=== PATIENT | female | born 1980 | race Caucasian/White ===

== ENCOUNTER 2017-07-02 18:30 | Emergency (ER) | payer OTHER ==
[2017-07-02 18:46] VITALS: BP 147/87; PULSE 82; TEMP 98.3; BMI 28.3
--- NOTE | 2017-07-02 21:47 | PDOC ---
History of Present Illness - General History Source: Patient Exam Limitations: No Limitations - History of Present Illness Initial Comments: This is a 37 yo (about 4 weeks ) female with h/o ectopic this past February (treated with methotrexate x2), who presents with right lower abdominal pain for the past 3 days. It is radiating to the right lower back, fluctuating, up to 8/10 severity, and feels like a cramp. She has taken no medications for her symptoms. She was seen at the office of her OB doctor (Dr. Loya) on Thursday, at which time she had an ultrasound which did not show any sac, pole, or yolk sac within the uterus. She then had a follow-up hCG today, was told the level was high, and was instructed to go to the ED to rule out ectopic . She notes recent clear vaginal discharge and chills , but denies fever, vaginal bleeding, painful urination, fever, nausea, vomiting , diarrhea, constipation, or other recent symptoms. She denies h/o STDs and has no concern for STD tonight. <Hayley Gray - Last Filed: 07/02/17 23:27> <Gabriella Mohan - Last Filed: 07/03/17 01:26> - General Chief Complaint: Pain Stated Complaint: PCP SENT/EVALUATION Time Seen by Provider: 07/02/17 21:18 Past History - Psycho/Social/Smoking Cessation Hx Suicidal Ideation: No Smoking History: Never smoked Information on smoking cessation initiated: No Hx Alcohol Use: No Drug/Substance Use Hx: No Substance Use Type: None <Hayley Gray - Last Filed: 07/02/17 23:27> <Gabriella Mohan - Last Filed: 07/03/17 01:26> - Past Medical History Allergies/Adverse Reactions: Allergies Allergy/AdvReac Type Severity Reaction Status Date / Time No Known Allergies Allergy Verified 07/02/17 18:46 Home Medications: Ambulatory Orders Pantoprazole Sodium [Protonix -] 40 mg PO DAILY #14 tablet.ec 03/09/16 Nitrofurantoin Monohyd/M-Cryst [Macrobid -] 100 mg PO BID #14 capsule 07/03/17 Review of Systems - Review of Systems Constitutional: Yes: Chills. No: Fever, Unexplained wgt Loss HEENTM: No: Nose Congestion, Throat Pain Respiratory: No: Cough, Shortness of Breath Cardiac (ROS): No: Chest Pain, Palpitations ABD/GI: Yes: Abdominal cramping. No: Constipated, Diarrhea, Nausea, Vomiting : Yes: Other (clear vaginal discharge). No: Burning, Dysuria Musculoskeletal: No: Back Pain, Neck Pain Integumentary: No: Bruising, Rash Neurological: No: Headache, Numbness, Tingling, Weakness, Dizziness Endocrine: No: Unexplained Weight Gain, Unexplained Weight Loss <Hayley Gray - Last Filed: 07/02/17 23:27> *Physical Exam - Vital Signs Last Vital Signs Temp Pulse Resp BP Pulse Ox 98.3 F 82 18 147/87 100 07/02/17 18:44 07/02/17 18:44 07/02/17 18:44 07/02/17 18:44 07/02/17 18:44 07/02/17 22:30 Blood pressure re-checked suring examination to be 110/80. - Physical Exam General Appearance: Yes: Nourished, Appropriately Dressed, Other (well appearing and nontoxic appearing, conversive, pleasant). No: Apparent Distress HEENT: positive: EOMI, Normal Voice, Hearing Grossly Normal. negative: Scleral Icterus (R), Scleral Icterus (L), Nasal Congestion Neck: positive: Trachea midline, Supple. negative: Tender, Rigid Respiratory/Chest: positive: Lungs Clear, Normal Breath Sounds. negative: Respiratory Distress, Crackles, Rhonchi, Stridor, Wheezing Cardiovascular: positive: Regular Rhythm, Regular Rate. negative: Edema, Murmur Female Pelvic Exam: positive: normal external exam, cervical os closed, discharge (moderate thin white non-odorous discharge), adnexal tenderness ( right only). negative: CMT, lesions, vaginal bleeding Gastrointestinal/Abdominal: positive: Normal Bowel Sounds, Tender (mild RLQ), Soft. negative: Organomegaly, Pulsatile Mass, Guarding Musculoskeletal: positive: Normal Inspection. negative: Decreased Range of Motion, Vertebral Tenderness Extremity: positive: Normal Capillary Refill, Normal Inspection, Normal Range of Motion. negative: Tender, Cyanosis Integumentary: positive: Normal Color, Dry, Warm. negative: Erythema, Rash, Bruising Neurologic: positive: transitional care manager II-XII NML intact (grossly), Fully Oriented, Alert, Normal Mood/Affect, Normal Response, Motor Strength 5/5 <Hayley Gray - Last Filed: 07/02/17 23:27> - Vital Signs Last Vital Signs Temp Pulse Resp BP Pulse Ox 98.3 F 82 18 147/87 100 07/02/17 18:44 07/02/17 18:44 07/02/17 18:44 07/02/17 18:44 07/02/17 18:44 <Gabriella Mohan - Last Filed: 07/03/17 01:26> ED Treatment Course - LABORATORY CBC & Chemistry Diagram: 07/02/17 22:12 07/02/17 22:12 <Hayley Gray - Last Filed: 07/02/17 23:27> - LABORATORY CBC & Chemistry Diagram: 07/02/17 22:12 07/02/17 22:12 - ADDITIONAL ORDERS Additional order review: Laboratory Results 07/02/17 07/02/17 07/02/17 22:12 22:12 22:12 Sodium 138 Potassium 3.6 Chloride 104 Carbon Dioxide 28 Anion Gap 6 L BUN 9 Creatinine 0.6 D Creat Clearance w eGFR > 60 Random Glucose 99 Calcium 8.9 Total Bilirubin 0.4 D AST 16 ALT 35 D Alkaline Phosphatase 82 Total Protein 7.3 Albumin 3.9 Beta HCG, Quant 2043.7 Urine Color Urine Appearance Urine pH Urine Protein Urine Glucose (UA) Urine Ketones Urine Blood Urine Nitrite Urine Bilirubin Urine Urobilinogen Ur Leukocyte Esterase Urine RBC Urine WBC Ur Epithelial Cells Hyaline Casts Urine Mucus Urine HCG, Qual Blood Type O POSITIVE Antibody Screen Negative 07/02/17 07/02/17 22:04 21:55 Sodium Potassium Chloride Carbon Dioxide Anion Gap BUN Creatinine Creat Clearance w eGFR Random Glucose Calcium Total Bilirubin AST ALT Alkaline Phosphatase Total Protein Albumin Beta HCG, Quant Urine Color Yellow Urine Appearance Slcloudy Urine pH 7.0 Urine Protein Negative Urine Glucose (UA) Negative Urine Ketones Negative Urine Blood Negative Urine Nitrite Negative Urine Bilirubin Negative Urine Urobilinogen 4.0 e.u/dl H Ur Leukocyte Esterase 3+ H Urine RBC 1 Urine WBC 10 Ur Epithelial Cells Few Hyaline Casts 4 Urine Mucus Rare Urine HCG, Qual Positive Blood Type Antibody Screen 07/02/17 22:12 RBC 4.53 MCV 86.7 MCHC 33.3 RDW 12.2 MPV 8.0 Neutrophils % 70.0 Lymphocytes % 22.4 D Monocytes % 6.0 Eosinophils % 1.3 Basophils % 0.3 - RADIOLOGY Radiology Studies Ordered: Category Date Time Status PELVIS(OTHER) US [US] Stat Ultrasound 07/03/17 00:25 Taken TRANSVAGINAL ULTRASOUND US [US] Stat Ultrasound 07/02/17 21:40 Completed <Gabriella Mohan - Last Filed: 07/03/17 01:26> Medical Decision Making - Medical Decision Making This is a 37 yo (4 wk ) female with h/o prior ectopic who p/w RLQ pain. US in OB's office on Thursday was not able to visualize IUP. Beta-hCG today in OB office was high. Pt was instructed to come to the ED to r/o ectopic . Exam notable for RLQ ttp. Pelvic with moderate thin white discharge, os closed, right adnexal tenderness, no CMT. DDX includes ectopic , appendicitis, round ligament pain, UTI. Ordered are CBC, CMP, lipase, quant beta-hCG, UA/cx, US transvaginal. 07/02/17 23:27 UA with 3+ leukocyte esterase. CBC unremarkable. Quantitative beta-hCG is 2043.7. Pt is sent for transvaginal US. 07/02/17 23:33 <Hayley Gray - Last Filed: 07/02/17 23:27> *DC/Admit/Observation/Transfer <Hayley Gray - Last Filed: 07/02/17 23:27> <Gabriella Mohan - Last Filed: 07/03/17 01:26> Diagnosis at time of Disposition: Abdominal pain affecting - Prescriptions Prescriptions: Nitrofurantoin Monohyd/M-Cryst [Macrobid -] 100 mg PO BID #14 capsule - Referrals Referrals: Hilario Loya [Primary Care Provider] - - Patient Instructions Printed Discharge Instructions: DI for Acute Abdomen Additional Instructions: Your ultrasound was inconclusive as the appendix was not visible. Please return at 6:30am for your MRI which is needed to rule out appendicitis. If your abdominal pain worsens, come back sooner.
--- NOTE | 2017-07-02 21:51 | PDOC ---
Attending Attestation - HPI HPI: The patient is a 37 yo F with a past medical history significant for Hx of ectopic who presents from OBs office complaining of 2-3 days of RLQ pain and positive HCG with no intrauterine seen on US at her OBs office. The patient states the pain radiates to her R lower back. She describes the pain as a cramping sensation. The patient states she went to her OBs office on Thursday and had her US. Today, the patient tested her HCG in office today and found it to be elevated. Her OB sent her to the ED for possible ectopic . 07/09. Radiates to RL back. Cramping. She states her LMP was 05/26. She notes shes been having clear vaginal discharge and subjective chills. Denies fevers, nausea, vomiting, diarrhea. Denies vaginal bleeding. Denies hematuria, frequency, urgency and dysuria. She states her last ectopic felt different in that it was nonstop bleeding and more painful. She also experienced nausea and vomiting last time. Last BM was this morning. PCP: Dr. Mas - Physicial Exam PE: GENERAL: Awake, alert, and fully oriented, in no acute distress HEAD: No signs of trauma EYES: PERRLA, EOMI, sclera anicteric, conjunctiva clear ENT: Auricles normal inspection, hearing grossly normal, nares patent, oropharynx clear without exudates. Moist mucosa NECK: Normal ROM, supple, no lymphadenopathy, JVD, or masses LUNGS: Breath sounds equal, clear to auscultation bilaterally. No wheezes, and no crackles HEART: Regular rate and rhythm, normal S1 and S2, no murmurs, rubs or gallops ABDOMEN: Soft, RLQ tenderness to palpation, normoactive bowel sounds. No guarding, no rebound. No masses EXTREMITIES: Normal range of motion, no edema. No clubbing or cyanosis. No cords, erythema, or tenderness NEUROLOGICAL: Cranial nerves II through XII grossly intact. Normal speech, normal gait SKIN: Warm, Dry, normal turgor, no rashes or lesions noted. - Medical Decision Making Pelvic US: FINDINGS: The appendix is not visualized. However, there is excess bowel gas limiting the scan. Therefore, nonvisualization of the appendix does not exclude appendicitis and if appendicitis is suspected, further evaluation is recommended. Documentation prepared by Margie Lim, acting as medical coding auditor for Gabriella Mohan MD, /DO. <Margie Lim - Last Filed: 07/03/17 00:52> - Resident Resident Name: Hayley Gray - Medical Decision Making 07/02/17 23:00 37yo F currently 4 weeks by dates, hx ectopic p/w 2 days of RLQ pain and sent in to ED by her OB 2/2 "elevated HCG." Pt also reports that an US on Thursday did not show an intrauterine . Here, her exam is remarkable for significant RLQ ttp but no rebound or guarding and mild R adnexal ttp on pelvic exam. Concern for ectopic vs appendicitis. TVUS thus far negative for ectopic , and shows no R ovarian pathology. In addition, the US shows an IUP, On reexamination, pt remains tender in the RLQ. Spoke with radiology who recommends a pelvic US to see if the appendix can be visualized. Remainder of plan: -labs including CBC, T&S, and HCG quant -UA -reassess 07/02/17 23:05 Initial BP 140's systolic. On repeat BP 108/72, and when repeated 30 mins later was 104/68. UA with no protein. UA with 3+ LE, pt is asymptomatic. Will give pt nitrofurantoin in case of asymptomatic bacturia. 07/03/17 01:00 Pelvic US does not visualize the appendix. Since an MRI will be needed to r/o appendicitis, we offered to patient admission for monitoring as well as consultation of the CLIENT SUPPORT MANAGER team in addition to an MRI in the morning. Pt does not want to stay in the hospital and prefers to come back in the morning for MRI. I discussed the possibility of her condition getting worse, especially if there is an appendicitis and that we could monitor her in the ED but she declines to stay. Vitals are stable, she is not in any distress. She agrees to return in the morning for MRI or at any point tonight if she changes her mind or she has any symptoms of worsening pain, distended abdomen, bleeding, CP, or any other concerning symptoms. -DC 07/03/17 03:48 <Gabriella Mohan - Last Filed: 07/03/17 03:48>
[2017-07-02 22:11] LABS: URINE APPEARANCE SLCLOUDY; URINE BILIRUBIN NEGATIVE (NEGATIVE); URINE BLOOD NEGATIVE (NEGATIVE); URINE COLOR YELLOW; URINE GLUCOSE (UA) NEGATIVE (NEGATIVE); URINE KETONE NEGATIVE (NEGATIVE); URINE NITRITE NEGATIVE (NEGATIVE); URINE PROTEIN NEGATIVE (NEGATIVE); URINE UROBILINOGEN 4.0 E.U/dl mg/dL (0.2-1.0)
[2017-07-02 22:13] LABS: URINE LEUK ESTERASE 3+ (NEGATIVE)
[2017-07-02 22:15] LABS: URINE HYALINE CAST 4 /lpf; URINE MUCUS RARE; URINE RBC 1 /hpf (0-3); URINE WBC 10 /hpf (3-5)
[2017-07-02 22:19] LABS: BASOPHIL 0.3 % (0-2.0); EOSINOPHIL 1.3 % (0-4.5); MCH 28.9 pg (25.7-33.7); MCHC 33.3 g/dl (32.0-36.0); MEAN CELL VOLUME 86.7 fl (80-96); PLATELET COUNT 245 K/MM3 (134-434); RDW 12.2 % (11.6-15.6); WHITE BLOOD COUNT 9.5 K/mm3 (4.0-10.0)
[2017-07-02 22:51] LABS: ALBUMIN 3.9 g/dl (3.4-5.0); ANION GAP 6 (8-16); BILIRUBIN,TOTAL 0.4 mg/dL (0.2-1.0); CALCIUM 8.9 mg/dL (8.5-10.1); CO2 28 mmol/L (21-32); CREATININE 0.6 mg/dL (0.55-1.02); GLUCOSE,RANDOM 99 mg/dL (74-106); SGOT/AST 16 U/L (15-37); SGPT/ALT 35 U/L (12-78); TOT PROT 7.3 g/dl (6.4-8.2)
[2017-07-02 22:52] LABS: ALK PHOS 82 U/L (45-117)
[2017-07-03] MEDS ORDERED: NITROFURANTOIN MACROCRYSTAL 50 MG CAPSULE (FP) PO SCH (00:30)
--- NOTE | 2017-07-03 00:36 | PDOC ---
*Physical Exam - Vital Signs Pt's course was signed out to me by Dr. Vanegas. Pt is a 37F , who is 4 weeks , presenting with RLQ abdominal pain. Pt has no fever, no leukocytosis, no vaginal bleeding. transvaginal US showed intrauterine . Pelvic exam demonstrated adnexal tenderness. US vs. MRI to r/o appendicitis. Pt's UA consistent with UTI, pt is asymptomatic, treated with abx. Last Vital Signs Temp Pulse Resp BP Pulse Ox 98.3 F 82 18 147/87 100 07/02/17 18:44 07/02/17 18:44 07/02/17 18:44 07/02/17 18:44 07/02/17 18:44 07/03/17 00:26 ED Treatment Course - LABORATORY CBC & Chemistry Diagram: 07/02/17 22:12 07/02/17 22:12 - ADDITIONAL ORDERS Additional order review: Laboratory Results 07/02/17 07/02/17 07/02/17 22:12 22:12 22:12 Sodium 138 Potassium 3.6 Chloride 104 Carbon Dioxide 28 Anion Gap 6 L BUN 9 Creatinine 0.6 D Creat Clearance w eGFR > 60 Random Glucose 99 Calcium 8.9 Total Bilirubin 0.4 D AST 16 ALT 35 D Alkaline Phosphatase 82 Total Protein 7.3 Albumin 3.9 Beta HCG, Quant 2043.7 Urine Color Urine Appearance Urine pH Urine Protein Urine Glucose (UA) Urine Ketones Urine Blood Urine Nitrite Urine Bilirubin Urine Urobilinogen Ur Leukocyte Esterase Urine RBC Urine WBC Ur Epithelial Cells Hyaline Casts Urine Mucus Urine HCG, Qual Blood Type O POSITIVE Antibody Screen Negative 07/02/17 07/02/17 22:04 21:55 Sodium Potassium Chloride Carbon Dioxide Anion Gap BUN Creatinine Creat Clearance w eGFR Random Glucose Calcium Total Bilirubin AST ALT Alkaline Phosphatase Total Protein Albumin Beta HCG, Quant Urine Color Yellow Urine Appearance Slcloudy Urine pH 7.0 Urine Protein Negative Urine Glucose (UA) Negative Urine Ketones Negative Urine Blood Negative Urine Nitrite Negative Urine Bilirubin Negative Urine Urobilinogen 4.0 e.u/dl H Ur Leukocyte Esterase 3+ H Urine RBC 1 Urine WBC 10 Ur Epithelial Cells Few Hyaline Casts 4 Urine Mucus Rare Urine HCG, Qual Positive Blood Type Antibody Screen 07/02/17 22:12 RBC 4.53 MCV 86.7 MCHC 33.3 RDW 12.2 MPV 8.0 Neutrophils % 70.0 Lymphocytes % 22.4 D Monocytes % 6.0 Eosinophils % 1.3 Basophils % 0.3 *DC/Admit/Observation/Transfer Diagnosis at time of Disposition: Abdominal pain affecting - Discharge Dispostion Disposition: HOME Admit: No - Prescriptions Prescriptions: Nitrofurantoin Monohyd/M-Cryst [Macrobid -] 100 mg PO BID #14 capsule - Patient Instructions Printed Discharge Instructions: DI for Acute Abdomen Additional Instructions: Your ultrasound was inconclusive as the appendix was not visible. Please return at 6:30am for your MRI which is needed to rule out appendicitis. If your abdominal pain worsens, come back sooner. - Attestations Physician Attestion: 07/03/17 01:09 I, Dr. Ruben Villeda, attest that this document has been prepared under my direction and personally reviewed by me in its entirety. I further attest, that it accurately reflects all work, treatment, procedures and medical decision -making performed by me.
[2017-07-03] MEDS ORDERED: NITROFURANTOIN MACROCRYSTAL 50 MG CAPSULE (FP) ONE (01:23)
== END 2017-07-03 01:30 | disposition home or self-care (01) ==
LOC: JER 18:30
DX: O26.891 Other specified pregnancy related conditions, first trimester (principal); Z3A.01 Less than 8 weeks gestation of pregnancy; R10.30 Lower abdominal pain, unspecified
CPT/HCPCS: 36415; 76830-TC; 76856-TC; 80053; 81003; 81015; 84702; 84703; 85025; 86850; 86900; 86901; 87086; 99282-25

== ENCOUNTER 2017-07-03 07:48 | Emergency (ER) | payer OTHER ==
[2017-07-03 07:57] VITALS: TEMP 98.1; BMI 28.3
--- NOTE | 2017-07-03 08:16 | PDOC ---
History of Present Illness - General Chief Complaint: Pain, Acute Stated Complaint: REVISIT Time Seen by Provider: 07/03/17 08:09 - History of Present Illness Initial Comments: 07/03/17 08:09 Ms. Porter is a 37 yo female with a significant past medical history of ectopic who presented to the emergency department from OB's office yesterday with 2-3 days of RLQ pain. She was referred to ER by OB after positive HCG w/out intrauterine seen on US at OB's office. She says the pain radiates to her lower back (R) and that it is crampy. She describes her pain as 9/10. LMP 05/26, she notes she has been having clear vaginal discharge w/ subjective chills. She had a full workup last night which was able to confirm an intrauterine sac (no pole noted) with transvaginal US. Pelvic US was not able to r/o appendicitis and she was recommended for admission with MRI. Elected to go home and represents this AM for same. The patient denies chest pain, shortness of breath, headache and dizziness. Denies fever, nausea, vomit, diarrhea and constipation. Denies dysuria, frequency, urgency and hematuria. Allergies: NKDA Past surgical history: None Social history: Social EtOH PMD - Dr. Llanes [facility] - Dr. Morgan 07/03/17 08:46 Past History - Past Medical History Allergies/Adverse Reactions: Allergies Allergy/AdvReac Type Severity Reaction Status Date / Time No Known Allergies Allergy Verified 07/03/17 07:55 Home Medications: Ambulatory Orders Nitrofurantoin Monohyd/M-Cryst [Macrobid -] 100 mg PO BID #14 capsule 07/03/17 - Immunization History Immunization Up to Date: Yes - Psycho/Social/Smoking Cessation Hx Suicidal Ideation: No Smoking History: Never smoked Hx Alcohol Use: No Drug/Substance Use Hx: No Substance Use Type: None Review of Systems - Review of Systems Comments:: 07/03/17 08:09 GENERAL/CONSTITUTIONAL: +Subjective chills. No fever. No weakness. HEAD, EYES, EARS, NOSE AND THROAT: No change in vision. No ear pain or discharge. No sore throat. CARDIOVASCULAR: No chest pain or shortness of breath RESPIRATORY: No cough, wheezing, or hemoptysis. GASTROINTESTINAL: +RLQ pain radiating to her back. No nausea, vomiting, diarrhea or constipation. GENITOURINARY: No dysuria, frequency, or change in urination. MUSCULOSKELETAL: No joint or muscle swelling or pain. No neck or back pain. SKIN: No rash NEUROLOGIC: No headache, vertigo, loss of consciousness, or change in strength/ sensation. ENDOCRINE: No increased thirst. No abnormal weight change HEMATOLOGIC/LYMPHATIC: No anemia, easy bleeding, or history of blood clots. ALLERGIC/IMMUNOLOGIC: No hives or skin allergy. *Physical Exam - Vital Signs Last Vital Signs Temp Pulse Resp BP Pulse Ox 98.1 F 73 18 131/78 100 07/03/17 07:55 07/03/17 07:55 07/03/17 07:55 07/03/17 07:55 07/03/17 07:55 - Physical Exam Comments: 07/03/17 08:09 GENERAL: Awake, alert, and fully oriented, in no acute distress HEAD: No signs of trauma, normocephalic, atraumatic EYES: PERRLA, EOMI, sclera anicteric, conjunctiva clear ENT: Auricles normal inspection, hearing grossly normal, nares patent, oropharynx clear without exudates. Moist mucosa NECK: Normal ROM, supple, no lymphadenopathy, JVD, or masses LUNGS: No distress, speaks full sentences, clear to auscultation bilaterally HEART: Regular rate and rhythm, normal S1 and S2, no murmurs, rubs or gallops, peripheral pulses normal and equal bilaterally. ABDOMEN: +Achey and Tender in RLQ. No rebound. Soft, normoactive bowel sounds. No guarding, no rebound. No masses EXTREMITIES: Normal inspection, Normal range of motion, no edema. No clubbing or cyanosis. NEUROLOGICAL: Cranial nerves II through XII grossly intact. Normal speech, normal gait, no focal sensorimotor deficits SKIN: Warm, Dry, normal turgor, no rashes or lesions noted. 07/03/17 13:23 ED Treatment Course - LABORATORY CBC & Chemistry Diagram: 07/03/17 09:09 07/03/17 09:09 Medical Decision Making - Medical Decision Making 07/03/17 09:29 Ms. Porter presents for F/U after leaving ED early this AM (0100) with suspected appendicitis. MRI ordered to confirm. 07/03/17 13:22 MRI negative for appendicitis, labs unconcerning. Instructed patient to f/u outpatient with [facility] and continue ABX. *DC/Admit/Observation/Transfer Diagnosis at time of Disposition: Epigastric abdominal pain - Discharge Dispostion Disposition: HOME Condition at time of disposition: Stable - Patient Instructions Additional Instructions: Please return immediately if any increase in pain, fever, or other concerning symptoms. - Attestations Physician Attestion: 07/03/17 13:23 I, Dr. Saeid Cordon, attest that this document has been prepared under my direction and personally reviewed by me in its entirety. I further attest, that it accurately reflects all work, treatment, procedures and medical decision -making performed by me.
--- NOTE | 2017-07-03 09:33 | PDOC ---
Attending Attestation - Resident Resident Name: Saeid Cordon - ED Attending Attestation I have performed the following: I have examined & evaluated the patient, The case was reviewed & discussed with the resident, I agree w/resident's findings & plan, Exceptions are as noted - HPI HPI: 07/03/17 09:25 37-year-old female approximate 5 weeks with no past medical history returns back for right lower quadrant pain. Patient was found to have a urinary tract infection and a transvaginal ultrasound demonstrated at 4 weeks and 6 days but no pole. Patient was given antibiotics and recommended for MRI. However, the patient did not want to stay and left and agree to return in the morning for an MRI. Denies fevers, nausea, vomiting, diarrhea. - Physicial Exam PE: 07/03/17 09:33 GENERAL: Awake, alert, and fully oriented, in no acute distress. HEAD: No signs of trauma EYES: PERRLA, EOMI, sclera anicteric, conjunctiva clear ENT: Auricles normal inspection, hearing grossly normal, nares patent, oropharynx clear without exudates. NECK: Normal ROM, supple, no lymphadenopathy, JVD, or masses LUNGS: Breath sounds equal, clear to auscultation bilaterally. No wheezes, and no crackles HEART: Regular rate and rhythm, normal S1 and S2, no murmurs, rubs or gallops ABDOMEN: TTP RLQ. Soft, normoactive bowel sounds. No guarding, no rebound. No masses EXTREMITIES: Normal range of motion, no edema. No clubbing or cyanosis. No cords, erythema, or tenderness NEUROLOGICAL: Cranial nerves II through XII grossly intact. Normal speech, normal gait SKIN: Warm, Dry, normal turgor, no rashes or lesions noted. - Medical Decision Making 07/03/17 09:33 Vital Signs Temp Pulse Resp BP Pulse Ox 98.1 F 73 18 131/78 100 07/03/17 07:55 07/03/17 07:55 07/03/17 07:55 07/03/17 07:55 07/03/17 07:55 Repeat beta. I agree reply with MRI. Abdomen pelvis to rule out appendicitis. 07/03/17 13:04 CBC, BMP 07/03/17 09:09 07/03/17 09:09 CMP Sodium 138 mmol/L (136-145) 07/03/17 09:09 Potassium 3.4 mmol/L (3.5-5.1) L 07/03/17 09:09 Chloride 105 mmol/L (98-107) 07/03/17 09:09 Carbon Dioxide 25 mmol/L (21-32) 07/03/17 09:09 Anion Gap 8 (8-16) 07/03/17 09:09 BUN 7 mg/dL (7-18) D 07/03/17 09:09 Creatinine 0.5 mg/dL (0.55-1.02) L 07/03/17 09:09 Random Glucose 89 mg/dL (74-106) 07/03/17 09:09 Calcium 8.8 mg/dL (8.5-10.1) 07/03/17 09:09 MRI reviewed. No appendicitis. Likely cystitis.
[2017-07-03 10:05] LABS: ANION GAP 8 (8-16); CALCIUM 8.8 mg/dL (8.5-10.1); CO2 25 mmol/L (21-32); CREATININE 0.5 mg/dL (0.55-1.02); GLUCOSE,RANDOM 89 mg/dL (74-106)
[2017-07-03 10:06] LABS: BASOPHIL 0.3 % (0-2.0); MCH 29.2 pg (25.7-33.7); MCHC 33.9 g/dl (32.0-36.0); MEAN CELL VOLUME 86.2 fl (80-96); PLATELET COUNT 228 K/MM3 (134-434); WHITE BLOOD COUNT 8.1 K/mm3 (4.0-10.0)
[2017-07-03 14:06] VITALS: BP 107/66; PULSE 93
== END 2017-07-03 14:06 | disposition home or self-care (01) ==
LOC: JER 07:48
DX: R10.13 Epigastric pain (principal)
CPT/HCPCS: 36415; 72195-TC; 74181-TC; 80048; 84702; 84703; 85025; 99283-25

== ENCOUNTER 2017-11-14 14:51 | Emergency (ER) | payer OTHER ==
[2017-11-14 15:08] VITALS: BMI 29.2
[2017-11-14] MEDS ORDERED: ACETAMINOPHEN 1000 MG/100 ML VIAL (NON FORMULARY) IVPB ONE (16:31)
[2017-11-14] MEDS ORDERED: SODIUM CHLORIDE 1,000 ML IV STA (16:31)
[2017-11-14] MEDS ORDERED: ONDANSETRON 4 MG/2 ML VIAL IVPB ONE (16:32)
[2017-11-14] MEDS ORDERED: ACETAMINOPHEN INJECTION 100 ML IVPB ONE (16:40)
[2017-11-14] MEDS ORDERED: ONDANSETRON 4 MG/2 ML VIAL ONE (16:41)
--- NOTE | 2017-11-14 16:44 | PDOC ---
History of Present Illness - General Chief Complaint: Cold Symptoms Stated Complaint: TROUBLE BREATHING/24 WKS PREG Time Seen by Provider: 11/14/17 16:22 - History of Present Illness Initial Comments: 11/14/17 16:39 37 F @ 24 weeks presenting with cough and sore throat x 2 days. Pt denies F/C. Pt denies any significant chest pain or SOB other than when she has a coughing fit. At rest she currently denies CP/SOB. Denies pleuritic or exertional chest pain. Pt denies any asymmetric leg swelling. Endorses occasional nausea and vomiting, no diarrhea or abdominal pain. No dysuria. No vaginal bleeding or discharge. Pt was seen at urgent care earlier today and had a negative flu swab and strep test. She was referred to ER due to tachycardia. Pt states that her OB, Dr. Longoria, instructed her to come to ER. I spoke with Dr. Longoria, who expressed his concern over pt's tachycardia in urgent care. He recommends non-stress testing after ED work up. Past History - Past Medical History Allergies/Adverse Reactions: Allergies Allergy/AdvReac Type Severity Reaction Status Date / Time No Known Allergies Allergy Verified 11/14/17 15:08 Home Medications: Ambulatory Orders Nitrofurantoin Monohyd/M-Cryst [Macrobid -] 100 mg PO BID #14 capsule 07/03/17 COPD: No - Immunization History Immunization Up to Date: Yes - Suicide/Smoking/Psychosocial Hx Smoking History: Never smoked Hx Alcohol Use: No Drug/Substance Use Hx: No Substance Use Type: None Review of Systems - Review of Systems Comments:: 11/14/17 16:44 "GENERAL/CONSTITUTIONAL: No fever or chills. No weakness. HEAD, EYES, EARS, NOSE AND THROAT: +sore throat. No change in vision. No ear pain or discharge. CARDIOVASCULAR: No chest pain or shortness of breath. RESPIRATORY: + cough, no wheezing, or hemoptysis. GASTROINTESTINAL: No nausea, vomiting, diarrhea or constipation. GENITOURINARY: No dysuria, frequency, or change in urination. MUSCULOSKELETAL: No joint or muscle swelling or pain. No neck or back pain. SKIN: No rash NEUROLOGIC: No headache, vertigo, loss of consciousness, or change in strength/ sensation. ENDOCRINE: No increased thirst. No abnormal weight change. HEMATOLOGIC/LYMPHATIC: No anemia, easy bleeding, or history of blood clots. ALLERGIC/IMMUNOLOGIC: No hives or skin allergy. " *Physical Exam - Vital Signs Last Vital Signs Temp Pulse Resp BP Pulse Ox 98.9 F 124 H 20 117/86 98 11/14/17 15:05 11/14/17 15:05 11/14/17 15:05 11/14/17 15:05 11/14/17 15:05 - Physical Exam Comments: 11/14/17 16:44 "GENERAL: Awake, alert, and fully oriented, in no acute distress HEAD: No signs of trauma EYES: PERRLA, EOMI, sclera anicteric, conjunctiva clear ENT: Auricles normal inspection, hearing grossly normal, nares patent, oropharynx clear without exudates. Moist mucosa NECK: Nontender, no stepoffs, Normal ROM, supple, no lymphadenopathy, JVD, or masses LUNGS: Breath sounds equal, clear to auscultation bilaterally. No wheezes, and no crackles HEART: Regular rate and rhythm, normal S1 and S2, no murmurs, rubs or gallops ABDOMEN: Soft, gravid, nontender, normoactive bowel sounds. No guarding, no rebound. No masses EXTREMITIES: Normal range of motion, no edema. No clubbing or cyanosis. No cords, erythema, or tenderness NEUROLOGICAL: Cranial nerves II through XII intact. 5/5 strength and sensation in all extremities, Normal speech, normal gait SKIN: Warm, Dry, normal turgor, no rashes or lesions noted. " Heart Score/ECG Review - ECG Impressions Comment:: 11/14/17 17:16 NSR, no EARLINE/STDs, HR 100, intervals wnl, axis wnl ED Treatment Course - LABORATORY CBC & Chemistry Diagram: 11/14/17 17:05 11/14/17 17:05 Medical Decision Making - Medical Decision Making 11/14/17 16:45 37 F @ 24 weeks presenting with URI-like symptoms, sent from urgent care to ER for tachycardia. Pt with HR 120 in ER. Pt with no clinical signs or symptoms of DVT and no pleuritic CP or SOB. Pt likely volume depleted 2/2 viral illness and vomiting. - IVF, zofran, tylenol - Reassess, repeat vitals 11/14/17 18:12 CBC,CMP WBC 10.4 K/mm3 (4.0-10.0) H 11/14/17 17:05 RBC 4.28 M/mm3 (3.60-5.2) 11/14/17 17:05 Hgb 12.5 GM/dL (10.7-15.3) 11/14/17 17:05 Hct 37.1 % (32.4-45.2) 11/14/17 17:05 MCV 86.7 fl (80-96) 11/14/17 17:05 MCH 29.3 pg (25.7-33.7) 11/14/17 17:05 MCHC 33.8 g/dl (32.0-36.0) 11/14/17 17:05 RDW 13.0 % (11.6-15.6) 11/14/17 17:05 Plt Count 181 K/MM3 (134-434) D 11/14/17 17:05 MPV 9.2 fl (7.5-11.1) D 11/14/17 17:05 Neutrophils % 82.7 % (42.8-82.8) 11/14/17 17:05 Lymphocytes % 8.6 % (8-40) D 11/14/17 17:05 Monocytes % 5.9 % (3.8-10.2) 11/14/17 17:05 Eosinophils % 2.4 % (0-4.5) D 11/14/17 17:05 Basophils % 0.4 % (0-2.0) 11/14/17 17:05 Sodium 137 mmol/L (136-145) 11/14/17 17:05 Potassium 3.4 mmol/L (3.5-5.1) L 11/14/17 17:05 Chloride 103 mmol/L (98-107) 11/14/17 17:05 Carbon Dioxide 24 mmol/L (21-32) 11/14/17 17:05 Anion Gap 10 (8-16) 11/14/17 17:05 BUN 5 mg/dL (7-18) L D 11/14/17 17:05 Creatinine 0.5 mg/dL (0.55-1.02) L 11/14/17 17:05 Creat Clearance w eGFR > 60 (>60) 11/14/17 17:05 Random Glucose 74 mg/dL (74-106) 11/14/17 17:05 Calcium 8.4 mg/dL (8.5-10.1) L 11/14/17 17:05 Total Bilirubin 0.3 mg/dL (0.2-1.0) D 11/14/17 17:05 AST 24 U/L (15-37) D 17 17:05 ALT 39 U/L (12-78) 11/14/17 17:05 Alkaline Phosphatase 84 U/L (45-117) 11/14/17 17:05 Creatine Kinase 48 IU/L (26-192) 11/14/17 17:05 Troponin I < 0.02 ng/ml (0.00-0.05) 11/14/17 17:05 Total Protein 6.7 g/dl (6.4-8.2) 11/14/17 17:05 Albumin 3.1 g/dl (3.4-5.0) L D 11/14/17 17:05 Lipase 221 U/L (73-393) 11/14/17 17:05 Pt reassessed - now has HR <100. Pt able to tolerate PO. Denies any chest pain or shortness of breath. Pt is well appearing with normal vitals. Clinically stable for DC at this time. Will send pt to L&D for heart monitoring. *DC/Admit/Observation/Transfer Diagnosis at time of Disposition: Viral syndrome - Discharge Dispostion Disposition: HOME - Referrals Referrals: Gaston Lujan MD [Primary Care Provider] - - Patient Instructions Printed Discharge Instructions: DI for Viral Upper Respiratory Infection -- Adult Additional Instructions: Please go directly to the labor and delivery floor for an evaluation of your baby. You likely have a viral illness. However, if you experience worsening symptoms, symptoms persisting more than 4 days, chest pain, difficulty breathing, or any other concerning symptoms, return to the ER immediately. Otherwise follow up with Dr. Longoria this week for a re-evaluation. - Post Discharge Activity - Attestations Physician Attestion: 11/14/17 18:14 I, Dr. Zak Narvaez MD, attest that this document has been prepared under my direction and personally reviewed by me in its entirety. I further attest, that it accurately reflects all work, treatment, procedures and medical decision -making performed by me.
[2017-11-14 16:58] LABS: URINE APPEARANCE SLCLOUDY; URINE BILIRUBIN NEGATIVE (NEGATIVE); URINE BLOOD NEGATIVE (NEGATIVE); URINE COLOR YELLOW; URINE GLUCOSE (UA) 1+ (NEGATIVE); URINE KETONE 2+ (NEGATIVE); URINE LEUK ESTERASE TRACE (NEGATIVE); URINE NITRITE NEGATIVE (NEGATIVE); URINE PROTEIN NEGATIVE (NEGATIVE); URINE UROBILINOGEN NEGATIVE mg/dL (0.2-1.0)
[2017-11-14 17:06] LABS: URINE BACTERIA RARE /hpf (NONE SEEN); URINE MUCUS RARE; URINE RBC <1 /hpf (0-3); URINE WBC 1 /hpf (3-5)
[2017-11-14 17:14] LABS: BASOPHIL 0.4 % (0-2.0); EOSINOPHIL 2.4 % (0-4.5); MCH 29.3 pg (25.7-33.7); MCHC 33.8 g/dl (32.0-36.0); MEAN CELL VOLUME 86.7 fl (80-96); MEAN PLT VOLUME 9.2 fl (7.5-11.1); NEUTROPHILS 82.7 % (42.8-82.8); PLATELET COUNT 181 K/MM3 (134-434); WHITE BLOOD COUNT 10.4 K/mm3 (4.0-10.0)
[2017-11-14 17:39] LABS: ALBUMIN 3.1 g/dl (3.4-5.0); ANION GAP 10 (8-16); BILIRUBIN,TOTAL 0.3 mg/dL (0.2-1.0); CALCIUM 8.4 mg/dL (8.5-10.1); CO2 24 mmol/L (21-32); CREATININE 0.5 mg/dL (0.55-1.02); GLUCOSE,RANDOM 74 mg/dL (74-106); SGOT/AST 24 U/L (15-37); SGPT/ALT 39 U/L (12-78); TOT PROT 6.7 g/dl (6.4-8.2)
[2017-11-14 17:42] LABS: ALK PHOS 84 U/L (45-117); CPK 48 IU/L (26-192); TROPONIN I < 0.02 ng/ml (0.00-0.05)
[2017-11-14 19:56] VITALS: BP 106/66; PULSE 103; TEMP 98.4
[2017-11-14 23:44] LABS: URINE LEUK ESTERASE Negative (NEGATIVE)
--- NOTE | 2017-11-17 01:40 | EKG ---
Test Reason : Blood Pressure : / mmHG Vent. Rate : 100 BPM Atrial Rate : 100 BPM P-R Int : 128 ms QRS Dur : 078 ms QT Int : 360 ms P-R-T Axes : 026 070 011 degrees QTc Int : 464 ms NORMAL SINUS RHYTHM NORMAL ECG NO PREVIOUS ECGS AVAILABLE Confirmed by ANIYA KHAN MD ([id number]) on 11/17/2017 1:40:42 AM Referred By: Confirmed By:ANIYA KHAN MD
== END 2017-11-14 20:25 | disposition home or self-care (01) ==
LOC: JER 14:51
PROC: 3E0337Z Introduction of Electrolytic and Water Balance Substance into Peripheral Vein, Percutaneous Approach (ICD-10-PCS; principal; 2017-11-14)
PROC: 3E033NZ Introduction of Analgesics, Hypnotics, Sedatives into Peripheral Vein, Percutaneous Approach (ICD-10-PCS; 2017-11-14)
PROC: 3E033GC Introduction of Other Therapeutic Substance into Peripheral Vein, Percutaneous Approach (ICD-10-PCS; 2017-11-14)
DX: O98.512 Other viral diseases complicating pregnancy, second trimester (principal); J06.9 Acute upper respiratory infection, unspecified; B34.9 Viral infection, unspecified; Z3A.24 24 weeks gestation of pregnancy
CPT/HCPCS: 36415; 80053; 81003; 81015; 82550; 83690; 84484; 85025; 87086; 93005; 93010; 96361; 96374; 96375; 99282-25

== ENCOUNTER 2020-10-09 14:23 | Inpatient (IN) | payer OTHER ==
[2020-10-09] MEDS ORDERED: ACETAMINOPHEN 1000 MG/100 ML VIAL (NON FORMULARY) IVPB ONE (14:34)
[2020-10-09] MEDS ORDERED: SODIUM CHLORIDE 1,000 ML IV STA (14:34)
[2020-10-09 14:36] VITALS: BMI 27.3
[2020-10-09] MEDS ORDERED: FAMOTIDINE 20 MG/50 ML IVPB 20 MG/50 ML MG IVPB ONE ×2 (15:03→15:23)
[2020-10-09] MEDS ORDERED: ACETAMINOPHEN INJECTION 100 ML IVPB ONE (15:23)
[2020-10-09 15:43] LABS: BASO % 0.7 % (0-2.0); EOS % 2.2 % (0-4.5); HEMATOCRIT 39.4 % (32.4-45.2); HEMOGLOBIN 13.1 GM/dL (10.7-15.3); LYMPH % 22.3 % (8-40); MCH 28.2 pg (25.7-33.7); MCHC 33.1 g/dl (32.0-36.0); MEAN CELL VOLUME 85.2 fl (80-96); MEAN PLT VOLUME 7.4 fl (7.5-11.1); MONO % 5.2 % (3.8-10.2); NEUT % 69.6 % (42.8-82.8); PLATELET COUNT 299 K/MM3 (134-434); RBC 4.62 M/mm3 (3.60-5.2); RDW 12.1 % (11.6-15.6); WHITE BLOOD COUNT 7.6 K/mm3 (4.0-10.0)
[2020-10-09 16:10] LABS: CALCIUM 9.2 mg/dL (8.5-10.1)
[2020-10-09 16:11] LABS: BLOOD UREA NITROGEN 9.5 mg/dL (7-18)
[2020-10-09 16:14] LABS: CREATININE 0.6 mg/dL (0.55-1.3)
[2020-10-09 16:15] LABS: BILIRUBIN,TOTAL 0.2 mg/dL (0.2-1)
[2020-10-09 16:16] LABS: TOT PROT 7.6 g/dl (6.4-8.2)
[2020-10-09 16:54] LABS: HCG,QUALITATIVE URINE Negative
[2020-10-09 17:30] LABS: EPI CELLS 21 /uL (0-25.1); HYALINE CASTS 1 /uL (0-3.1); PH,URINE 7.5 (5.0-8.0); URINE APPEARANCE CLEAR; URINE BACTERIA 119 /uL (0-1359); URINE BILIRUBIN NEGATIVE (NEGATIVE); URINE COLOR ORANGE; URINE GLUCOSE (UA) NEGATIVE (NEGATIVE); URINE KETONE NEGATIVE (NEGATIVE); URINE LEUK ESTERASE 1+ (NEGATIVE); URINE NITRITE NEGATIVE (NEGATIVE); URINE PROTEIN TRACE (NEGATIVE); URINE RBC 4077 /uL (0-23.9); URINE UROBILINOGEN 0.2 mg/dL (0.2-1.0); URINE WBC 66 /uL (0-25.8)
[2020-10-09] MEDS ORDERED: SODIUM CHLORIDE 1,000 ML IV SCH (18:15)
[2020-10-09 18:42] LABS: INR 1.19 (0.83-1.09); PROTHROMBIN TIME (PATIENT) 14.3 SEC (9.7-13.0)
[2020-10-09 18:45] LABS: ACTIVATED PTT 33.9 SECONDS (25.2-36.5)
[2020-10-09] MEDS ORDERED: PIPERACILLIN/TAZOB 3.375 GM 3.375 GM in DEXTROSE 5%-WATER - 50 ML IVPB ONE (21:16)
[2020-10-09] MEDS ORDERED: ACETAMINOPHEN 1000 MG/100 ML VIAL (NON FORMULARY) IVPB PRN (21:17)
[2020-10-09] MEDS ORDERED: PIPERACILLIN/TAZOBACTAM 3.375 GM VIAL IVPB ONE (22:42)
[2020-10-09] MEDS ORDERED: DEXTROSE 5%-WATER - 50 ML IVPB ONE (22:43)
[2020-10-10] MEDS ORDERED: PIPERACILLIN/TAZOBACTAM 3.375 GM VIAL IVPB ONE ×3 (02:37→10:27)
[2020-10-10] MEDS ORDERED: DEXTROSE 5%-WATER - 50 ML IVPB ONE ×3 (02:38→10:27)
[2020-10-10] MEDS: PIPERACILLIN/TAZOB 3.375 GM 3.375 GM in DEXTROSE 5%-WATER - 50 ML IVPB SCH ×2 (04:52→10:23)
[2020-10-10 06:51] LABS: BASO % 0.7 % (0-2.0); EOS % 2.7 % (0-4.5); HEMATOCRIT 38.3 % (32.4-45.2); HEMOGLOBIN 12.6 GM/dL (10.7-15.3); LYMPH % 27.3 % (8-40); MCH 28.3 pg (25.7-33.7); MCHC 32.9 g/dl (32.0-36.0); MEAN CELL VOLUME 85.8 fl (80-96); MEAN PLT VOLUME 7.8 fl (7.5-11.1); MONO % 5.5 % (3.8-10.2); NEUT % 63.8 % (42.8-82.8); PLATELET COUNT 266 K/MM3 (134-434); RBC 4.46 M/mm3 (3.60-5.2); RDW 12.3 % (11.6-15.6); WHITE BLOOD COUNT 6.3 K/mm3 (4.0-10.0)
[2020-10-10 07:11] LABS: POTASSIUM 3.6 mmol/L (3.5-5.1)
[2020-10-10 07:19] LABS: ALBUMIN 3.4 g/dl (3.4-5.0); BLOOD UREA NITROGEN 4.4 mg/dL (7-18); CALCIUM 8.7 mg/dL (8.5-10.1)
[2020-10-10 07:22] LABS: CREATININE 0.6 mg/dL (0.55-1.3)
[2020-10-10 07:23] LABS: BILIRUBIN,TOTAL 0.6 mg/dL (0.2-1); TOT PROT 6.7 g/dl (6.4-8.2)
[2020-10-10] MEDS ORDERED: PANTOPRAZOLE SODIUM 40 MG VIAL IVPUSH SCH (10:00)
[2020-10-10] MEDS ORDERED: ONDANSETRON 4 MG/2 ML VIAL IVPUSH PRN ×3 (12:03→18:06)
[2020-10-10] MEDS ORDERED: PROMETHAZINE HCL 25 MG/1 ML VIAL IVPB PRN ×2 (12:03→14:15)
[2020-10-10] MEDS ORDERED: LACTATED RINGERS SOLUTION 1,000 ML IV SCH (12:15)
[2020-10-10] MEDS ORDERED: ROCURONIUM BROMIDE 50 MG/5 ML SYRINGE ONE (12:40)
[2020-10-10] MEDS ORDERED: MIDAZOLAM HCL 2 MG/2 ML SINGLE DOSE VIAL ONE (12:40)
[2020-10-10] MEDS ORDERED: PROPOFOL 20 ML ONE ×2 (12:40)
[2020-10-10] MEDS ORDERED: ceFAZolin SODIUM 1 GM VIAL ONE (12:55)
[2020-10-10] MEDS ORDERED: ceFAZolin SODIUM 1 GM VIAL IVPB ONE (12:56)
[2020-10-10] MEDS ORDERED: DEXAMETHASONE SOD PHOSPHATE 4 MG/1 ML VIAL ONE (12:58)
[2020-10-10] MEDS ORDERED: BUPIVACAINE HCL 50 ML ONE (13:13)
[2020-10-10] MEDS ORDERED: BUPIVACAINE HCL 0.5% 250 MG/50 ML VIAL IJ ONE ×2 (13:31)
[2020-10-10] MEDS ORDERED: NEOSTIGMINE METHYLSULFATE 0.5 MG/ML - 10 ML MDV ONE (13:34)
[2020-10-10] MEDS ORDERED: GLYCOPYRROLATE 0.2 MG/1 ML VIAL ONE (13:34)
[2020-10-10] MEDS ORDERED: KETOROLAC TROMETHAMINE 30 MG/1 ML VIAL ONE (13:38)
[2020-10-10] MEDS ORDERED: SODIUM CHLORIDE 1,000 ML IV SCH (14:15)
[2020-10-10] MEDS ORDERED: ACETAMINOPHEN 1000 MG/100 ML VIAL (NON FORMULARY) IVPB PRN (14:15)
[2020-10-10] MEDS ORDERED: ACETAMINOPHEN INJECTION 100 ML IVPB ONE (14:18)
[2020-10-10] MEDS ORDERED: PIPERACILLIN/TAZOB 3.375 GM 3.375 GM in DEXTROSE 5%-WATER - 50 ML IVPB SCH (18:00)
[2020-10-10] MEDS ORDERED: ONDANSETRON 4 MG/2 ML VIAL IVPUSH ONE (18:01)
[2020-10-10] MEDS: LACTATED RINGERS SOLUTION 1,000 ML IV SCH (18:27)
[2020-10-10] MEDS: oxyCODONE HCL 5 MG TABLET PO PRN (18:32)
[2020-10-10] MEDS: ACETAMINOPHEN 325 MG TABLET (FP) PO PRN (18:32)
[2020-10-10] MEDS ORDERED: PT OWN MED DRAWER 7, Y5N ONE (19:49)
[2020-10-11] MEDS: LACTATED RINGERS SOLUTION 1,000 ML IV SCH (06:26)
[2020-10-11] MEDS: oxyCODONE HCL 5 MG TABLET PO PRN (07:08)
[2020-10-11] MEDS: ACETAMINOPHEN 325 MG TABLET (FP) PO PRN (07:09)
[2020-10-11 08:16] LABS: HEMATOCRIT 34.3 % (32.4-45.2); HEMOGLOBIN 11.5 GM/dL (10.7-15.3); MCH 28.3 pg (25.7-33.7); MCHC 33.6 g/dl (32.0-36.0); MEAN CELL VOLUME 84.4 fl (80-96); MEAN PLT VOLUME 7.9 fl (7.5-11.1); PLATELET COUNT 252 K/MM3 (134-434); RBC 4.06 M/mm3 (3.60-5.2); WHITE BLOOD COUNT 10.1 K/mm3 (4.0-10.0)
[2020-10-11 08:35] LABS: CALCIUM 8.7 mg/dL (8.5-10.1)
[2020-10-11 08:36] LABS: ALBUMIN 3.3 g/dl (3.4-5.0)
[2020-10-11 08:39] LABS: BILIRUBIN,DIRECT 0.1 mg/dL (0.0-0.2); CREATININE 0.6 mg/dL (0.55-1.3)
[2020-10-11 08:40] LABS: BILIRUBIN,TOTAL 0.5 mg/dL (0.2-1); TOT PROT 6.4 g/dl (6.4-8.2)
[2020-10-11] MEDS ORDERED: PANTOPRAZOLE SODIUM 40 MG VIAL IVPUSH SCH (10:00)
[2020-10-11 13:55] VITALS: BP 131/88; PULSE 74; TEMP 98.5
== END 2020-10-11 14:25 | disposition home or self-care (01) | DRG 263 ==
LOC: JER 14:23 → JERBED 18:30 → J7W 22:35 → J8W 10-10 21:38
PROVIDERS: ATTEND Family Medicine
PROC: 0FT44ZZ Resection of Gallbladder, Percutaneous Endoscopic Approach (ICD-10-PCS; principal; 2020-10-10 12:00)
DX: K80.00 Calculus of gallbladder with acute cholecystitis without obstruction (principal); K76.0 Fatty (change of) liver, not elsewhere classified
CPT/HCPCS: 36415; 71046-TC-FY; 76705-TC; 80048; 80053; 80076; 81003; 83690; 84703; 85025; 85027; 85610; 85730; 86850; 86900; 86901; 87086; 88304-TC; 93005; 93010; 94760; 99285-25; C9803; J0131; U0003

== ENCOUNTER 2021-04-01 17:51 | Emergency (ER) | payer OTHER ==
[2021-04-01 18:03] VITALS: BP 106/77; PULSE 76; TEMP 97.8; BMI 28.3
[2021-04-01] MEDS ORDERED: KETOROLAC TROMETHAMINE 30 MG/1 ML VIAL IM ONE (18:54)
[2021-04-01] MEDS ORDERED: KETOROLAC TROMETHAMINE 30 MG/1 ML VIAL ONE (18:56)
== END 2021-04-01 20:25 | disposition home or self-care (01) ==
LOC: JERFT 17:51
PROC: 3E0233Z Introduction of Anti-inflammatory into Muscle, Percutaneous Approach (ICD-10-PCS; principal; 2021-04-01)
DX: M25.511 Pain in right shoulder (principal)
CPT/HCPCS: 73030-TC-RT-FY; 99284-25

== ENCOUNTER 2021-04-25 07:02 | Day surgery (SDC) | payer OTHER ==
[2021-04-17 16:00] VITALS: BMI 28.3
[2021-04-25] MEDS ORDERED: EPINEPHrine 1:1,000 1 MG/1 ML - 30ML VIAL (INJECTION) ONE (08:24)
[2021-04-25] MEDS ORDERED: SUCCINYLCHOLINE CHLORIDE 200 MG/10 ML SYRINGE ONE (08:26)
[2021-04-25] MEDS ORDERED: PROPOFOL 20 ML ONE ×5 (08:26→10:50)
[2021-04-25] MEDS ORDERED: ROPIVACAINE HCL 0.5% 30ML VIAL ONE (08:40)
[2021-04-25] MEDS ORDERED: DEXAMETHASONE SOD PHOSPHATE 10 MG/1 ML VIAL ONE (08:40)
[2021-04-25] MEDS ORDERED: MIDAZOLAM HCL 2 MG/2 ML SINGLE DOSE VIAL ONE (08:40)
[2021-04-25] MEDS ORDERED: ceFAZolin SODIUM 1 GM VIAL ONE (09:16)
[2021-04-25] MEDS ORDERED: DEXAMETHASONE SOD PHOSPHATE 4 MG/1 ML VIAL ONE (09:23)
[2021-04-25] MEDS ORDERED: ONDANSETRON 4 MG/2 ML VIAL ONE (09:23)
[2021-04-25] MEDS ORDERED: BUPIVACAINE HCL/PF 0.25% (2.5MG/ML) 10 ML VIAL ONE (09:59)
[2021-04-25] MEDS ORDERED: BACITRACIN 15 GM TUBE TOPICAL OINTMENT ONE (10:59)
[2021-04-25] MEDS ORDERED: ONDANSETRON 4 MG/2 ML VIAL IVPUSH PRN (11:24)
[2021-04-25] MEDS ORDERED: oxyCODONE HCL 5 MG TABLET PO PRN (11:24)
[2021-04-25] MEDS ORDERED: LACTATED RINGERS SOLUTION 1,000 ML IV SCH (11:30)
[2021-04-25 13:51] VITALS: TEMP 97.8
[2021-04-25 14:26] VITALS: BP 134/90; PULSE 86
== END 2021-04-25 13:45 | disposition home or self-care (01) ==
LOC: FASU 07:02
PROVIDERS: ATTEND Orthopaedic Surgery Sports Medicine
PROC: 0RNJ4ZZ Release Right Shoulder Joint, Percutaneous Endoscopic Approach (ICD-10-PCS; 2021-04-25)
PROC: 0LQ14ZZ Repair Right Shoulder Tendon, Percutaneous Endoscopic Approach (ICD-10-PCS; principal; 2021-04-25 09:29)
PROC: 0RHJ44Z Insertion of Internal Fixation Device into Right Shoulder Joint, Percutaneous Endoscopic Approach (ICD-10-PCS; 2021-04-25 09:29)
DX: M75.121 Complete rotator cuff tear or rupture of right shoulder, not specified as traumatic (principal); X58.XXXA Exposure to other specified factors, initial encounter; Y92.9 Unspecified place or not applicable; Y93.9 Activity, unspecified
CPT/HCPCS: 29826; 29827; C1713; 84703; 88304-TC; 94760; J1100

== ENCOUNTER 2025-01-12 09:06 | Emergency (ER) | payer OTHER ==
[2025-01-12 09:24] VITALS: BP 125/87; PULSE 79; RESP 18; TEMP 97.8; BMI 28.7
[2025-01-12] MEDS ORDERED: IBUPROFEN 400 MG TABLET (FP) PO ONE (10:05)
[2025-01-12] MEDS ORDERED: ACETAMINOPHEN 500 MG TABLET (FP) ONE (10:06)
[2025-01-12] MEDS ORDERED: METHOCARBAMOL 500 MG TABLET ONE (10:06)
[2025-01-12] MEDS: IBUPROFEN 400 MG TABLET (FP) PO ONE (10:09)
[2025-01-12] MEDS: METHOCARBAMOL 500 MG TABLET PO ONE (10:10)
[2025-01-12] MEDS: ACETAMINOPHEN 500 MG TABLET (FP) PO ONE (10:10)
== END 2025-01-12 11:53 | disposition home or self-care (01) ==
LOC: JERFT 09:06
DX: M54.42 Lumbago with sciatica, left side (principal); M79.605 Pain in left leg
CPT/HCPCS: 72131-TC; 99284-25